=== PATIENT | male | born 2000 | race Caucasian/White ===

== ENCOUNTER 2024-11-26 10:25 | Emergency (ER) | payer SELFPAY ==
[2024-11-26 10:27] VITALS: BP 114/88
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
== END 2024-11-26 12:45 | disposition home or self-care (01) ==
LOC: EMR 10:25
PROVIDERS: EMERGENCY PHYSICIAN Emergency Medicine
DX: S80.812A Abrasion, left lower leg, initial encounter (principal); M25.511 Pain in right shoulder; S16.1XXA Strain of muscle, fascia and tendon at neck level, initial encounter; V43.52XA Car driver injured in collision with other type car in traffic accident, initial encounter; F17.200 Nicotine dependence, unspecified, uncomplicated; J45.909 Unspecified asthma, uncomplicated
CPT/HCPCS: 99284; 71101; 73030; 73564; 73590